=== PATIENT | female | born 1995 | race Caucasian/White ===

== ENCOUNTER 2017-10-03 00:47 | Emergency (ER) | payer BC ==
[~2017-10-03] VITALS: Ht 162.6 cm; Wt 48.6 kg
[~2017-10-03 00:47] MED LIST: FLUO20CA35 PO
[2017-10-03 00:55] VITALS: TEMP 37; Ht 162.6 cm; Wt 48.6 kg
[2017-10-03] MEDS ORDERED: ACETAMINOPHEN 500 MG TAB PO STA (01:09)
[2017-10-03] MEDS ORDERED: ONDANSETRON HOME PACK 4MG OD TAB PO ONE (01:15)
[2017-10-03] MEDS ORDERED: ONDANSETRON 4MG OD TAB PO ONE (01:15)
[2017-10-03] MEDS ORDERED: BUPR75TA20 PO (01:28)
[2017-10-03] MEDS ORDERED: XYLOCAINE 1%/SOD BICARB 20 ML VIAL INFIL ONE (01:30)
--- NOTE | 2017-10-03 01:49 | DIAGNOSTIC IMAGING REPORT ---
CT SCAN OF THE BRAIN WITHOUT IV CONTRAST CLINICAL HISTORY: Head injury. COMPARISON STUDY: CT of the brain dated 07/10/2015. TECHNIQUE: Unenhanced axial CT scan of the brain is performed from the vertex to the skull base. A dose lowering technique was utilized adhering to the principles of ALARA. CT DOSE: 537.48 mGy.cm FINDINGS: Brain parenchyma: The brain parenchyma is normal in appearance. There is no hemorrhage, mass effect, or evidence of acute territorial ischemia by CT criteria. Guzman-white matter is preserved. No extra-axial fluid collection is seen. Ventricles, sulci, cisterns: Normal in configuration. Intracranial vasculature: The visualized intracranial vasculature at the skull base is normal in appearance. Calvarium: There is no depressed calvarial fracture. Sinuses and mastoids: The visualized paranasal sinuses are clear. The mastoid air cells are well pneumatized. Orbits: The bony orbits are grossly intact. IMPRESSION: No acute intracranial abnormality. Electronically signed by: Tristin Smith M.D. 10/03/2017 1:47 AM Dictated Date/Time: 10/03/2017 1:46 AM
[2017-10-03 02:26] VITALS: BP 120/73; PULSE 88; O2SAT 98
[2017-10-03] MEDS ORDERED: AMOX875T PO (02:35)
[2017-10-03] MEDS ORDERED: AMOXICIL/CLAVU 875MG HOME PACK PO ONE (02:45)
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
== END 2017-10-03 02:43 | disposition home or self-care (01) ==
LOC: C.EDB 00:49
DX: S09.90XA Unspecified injury of head, initial encounter (principal); S01.511A Laceration without foreign body of lip, initial encounter; W50.0XXA Accidental hit or strike by another person, initial encounter